=== PATIENT | female | born 1960 | race Caucasian/White ===

== ENCOUNTER 2016-04-17 21:00 | Emergency (ER) | payer OTHER ==
[2016-04-17 21:22] VITALS: BP 149/78; PULSE 94; TEMP 97.8
--- NOTE | 2016-04-17 21:23 | DIRPT ---
CLINICAL DATA: Fell while walking her dog tonight. Pain in the radial side of the wrist. EXAM: RIGHT WRIST - COMPLETE 3+ VIEW COMPARISON: None. FINDINGS: There is a comminuted fracture of the radius involving the articular surface in the radioulnar joint. Intercarpal spaces are normal. IMPRESSION: Fracture the distal radius involving the articular surface. Electronically Signed By: Monse Salter M.D. On: 04/17/2016 21:20
[2016-04-17 21:24] VITALS: BMI 27.6
--- NOTE | 2016-04-17 21:57 | EDPRACDOC ---
- General Information Stated Complaint: FELL INJURED RT WRIST ? FX Time Seen by Provider: 04/17/16 21:33 Information Source: Patient Mode of Arrival: Car Home Medications: Home Medications Alprazolam [Xanax] 1 mg PO TID 03/08/14 Aspirin [Aspirin EC] 81 mg PO DAILY 03/08/14 Citalopram Hydrobromide [Celexa] 40 mg PO DAILY 03/08/14 Glipizide Xl [Glucotrol Xl] 5 mg PO 0700 03/08/14 Metformin HCl 1,000 mg PO BID 03/08/14 Metoprolol Tartrate 25 mg PO BID 03/08/14 Albuterol Sulfate [Ventolin Hfa] 1 - 2 puff INH Q4H PRN 03/20/14 Cyanocobalamin (Vitamin B-12) [Vitamin B-12] 2,500 mcg PO DAILY 03/20/14 Lisinopril [Prinivil] 10 mg PO DAILY 07/23/15 Pravastatin [Pravachol] 40 mg PO HS 07/23/15 Ibuprofen 600 mg PO TID #20 tablet 04/17/16 Oxycodone Immediate Release [Oxycodone Immediate Release (OxyIR)] 5 mg PO Q6H PRN #30 tab 04/17/16 Allergies/Adverse Reactions: Allergies Allergy/AdvReac Type Severity Reaction Status Date / Time codeine Allergy Itching Verified 04/17/16 21:34 morphine AdvReac See Verified 04/17/16 21:34 Comments - History of Present Illness Onset: HEALTH CARE LIAISON HPI: PT PRESENTS TODAY WITH RIGHT WRIST PAIN AFTER FOOSH HEALTH CARE LIAISON. NO OTHER INJURY. Location: Reports: Radial Mechanism: Reports: FOOSH Circumstances: Reports: Fall Pain Severity: Reports: Moderate Associated Signs and Symptoms: Reports: None ED Past Medical History - History Reviewed Yes Nurses notes reviewed and agree except as marked - Patient Medical History Neurological History: Reports: Migraine Cardiac History: Reports: Coronary Artery Disease, Hypertension, Heart Attack ( 2003 w/bypass), Cardiac Catheterization (x2), CABG (2003 2 VESSEL), Hypercholesterolemia Respiratory History: Reports: COPD. Denies: Pneumonia GI/ History: Reports: Gastroesophageal Reflux Musculoskeletal History: Reports: Osteoarthritis Psychological History: Reports: Anxiety (panic attacks). Denies: Depression, Substance Use Disorder Systemic History: Reports: Diabetes (NIDDM). Denies: Anemia Surgical History: Reports: Cholecystectomy, CABG (2004 2 VESSEL), Hysterectomy, Cardiac Catheterization (x2) - Family Medical History Reports: Hypertension (DAD,PGF), Diabetes (MOM, MGM, Bro, Sis), Cancer (MOM- OVARIAN), Cardiac Disorders (Mom) - Social Medical History Smoking Status: Former smoker Social History: Denies: Substance Use Disorder EDM Review of Systems - Review of Systems ROS Negative Except as Marked: Yes All systems reviewed and were negative except as marked Constitutional: No Symptoms Reported Respiratory: No Symptoms Reported Cardiovascular: No Symptoms Reported Gastrointestinal: No Symptoms Reported Neurological: No Symptoms Reported Musculoskeletal: Wrist Integumentary: No Symptoms Reported - Physical Exam Constitutional: Alert (Awake), No apparent distress Oriented to: Time, Person, Place Last recorded Vital Signs: Last Vital Signs Temp 97.8 F 04/17/16 21:21 Pulse 94 04/17/16 21:21 Resp 20 04/17/16 21:21 BP 149/78 04/17/16 21:21 Pulse Ox 96 04/17/16 21:21 Oxygen Pulse Oxygen Saturation 96 O2 Device Oxygen Flow Rate Fraction of Inspired Oxygen ( FIO2) - HEENT Head: Normal Eye Exam: Normal Neck: Normal, Denies Pain, Midline - Respiratory/Cardiovascular Respiratory: Normal - CTA Cardiovascular: Normal - GI Palpation: Normal Tenderness: Non tender - Musculoskeletal Back: Normal Extremities: Other (MODERATE SWELLING AND BRUISING TO RIGHT WRIST WITH LIKELY DEFORMITY; CAP REFILL < 1; RADIAL PULSES NORMAL) - Integumentary Skin: Normal Lymphatics: Normal - Neurologic Cerebellar: Normal Mood Description: Normal Thought: Coherent Perception: Normal ED Wrist Problem Exam Wrist Symptoms: Swelling, Limited ROM, Moderate Tenderness Hand Symptoms: Normal Forearm Symptoms: Normal Distal Function/Circulation: Normal - Integumentary Skin: Ecchymosis Lymphatics: Normal ED Procedures - Splinting 1st splint Location: RIGHT WRIST Hand-Made Type: orthoglass Splint: sugar-tong Pre-Proc Neuro Vasc Exam: normal Post-Proc Neuro Vasc Exam: normal Other Devices: Sling Decision Time to Discharge: 21:57 - Departure Disposition: Home Condition: Good Final Diagnosis: Wrist fracture Qualifiers: Encounter type: initial encounter Fracture type: closed Laterality: right Qualified Code(s): S62.101A - Fracture of unspecified carpal bone, right wrist, initial encounter for closed fracture Instructions: Wrist Fracture in Adults (ED) Education/Counseling Given To: Patient Education/Counseling Given Regarding: Diagnosis, Treatment, Follow Up Referrals: Hollis Camacho Jr, DO [Primary Care Provider] - One Week Goyo Brooks MD [Staff Physician] - One Week Prescriptions: New Ibuprofen 600 mg PO TID #20 tablet Oxycodone Immediate Release [Oxycodone Immediate Release (OxyIR)] 5 mg PO Q6H PRN #30 tab PRN Reason: Pain No Action Citalopram Hydrobromide [Celexa] 40 mg PO DAILY Aspirin [Aspirin EC] 81 mg PO DAILY Metoprolol Tartrate 25 mg PO BID Metformin HCl 1,000 mg PO BID Glipizide Xl [Glucotrol Xl] 5 mg PO 0700 Alprazolam [Xanax] 1 mg PO TID Cyanocobalamin (Vitamin B-12) [Vitamin B-12] 2,500 mcg PO DAILY Albuterol Sulfate [Ventolin Hfa] 1 - 2 puff INH Q4H PRN PRN Reason: SHORTNESS OF BREATH Pravastatin [Pravachol] 40 mg PO HS Lisinopril [Prinivil] 10 mg PO DAILY Additional Instructions: FOLLOW UP WITH ORTHO.
[2016-04-17] MEDS ORDERED: IBUPROFEN 600 MG TAB PO ONE (21:59)
[2016-04-17] MEDS ORDERED: OXYCODONE HCL 5 MG TABLET PO ONE (21:59)
== END 2016-04-17 22:06 | disposition home or self-care (01) ==
LOC: EDMC 21:00
DX: S62.101A Fracture of unspecified carpal bone, right wrist, initial encounter for closed fracture (principal); W19.XXXA Unspecified fall, initial encounter; Y93.9 Activity, unspecified
CPT/HCPCS: 29125; 73110; 99282; J3490